=== PATIENT | male | born 1980 | race Caucasian/White ===

== ENCOUNTER 2021-04-20 10:12 | Inpatient (IN) ==
[2021-04-20] MEDS ORDERED: REMDESIVIR 200 MG in NS 250 ML IV 250 ML IV ONE (11:44)
[2021-04-20] MEDS ORDERED: NS 1000 ML 1,000 ML ONE (12:15)
[2021-04-20] MEDS: ZITHROMAX INJ 500 MG VIAL 500 MG in NS 250 ML IV 250 ML IV SCH (12:34)
[2021-04-20] MEDS: NS 1000 ML 1,000 ML IV SCH (12:35)
[2021-04-20] MEDS: ROBITUSSIN DM PO SCH ×3 (12:35→20:19)
[2021-04-20] MEDS: SOLU-Medrol 125 MG VIAL IVP SCH ×3 (12:35→21:09)
[2021-04-20 13:33] LABS: BASOPHILS % (AUTO) 0.2 % (0.2-1.0); HEMATOCRIT 45.7 % (42.0-54.0); HEMOGLOBIN 15.7 g/dL (13.5-18.0); LYMPHOCYTES # (AUTO) 0.7 X10^3/uL (1.3-2.9); LYMPHOCYTES % (AUTO) 9.3 % (21.0-51.0); MEAN CORPUSCULAR HEMOGLOBIN 30.4 pg (27.0-34.0); MEAN CORPUSCULAR HGB CONC 34.3 g/dL (33.0-35.0); MEAN CORPUSCULAR VOLUME 88.6 fL (80.0-100.0); MEAN PLATELET VOLUME 8.7 fL (7.4-11.0); MONOCYTES # (AUTO) 0.4 x10^3/uL (0.3-0.8); MONOCYTES % (AUTO) 5.2 % (0.0-13.0); NEUTROPHILS # (AUTO) 6.2 x10^3/uL (2.2-4.8); NEUTROPHILS % (AUTO) 85.3 % (42.0-75.0); PLATELET COUNT 151 X10^3/uL (150.0-450.0); RED BLOOD COUNT 5.15 X10^6/uL (4.7-6.0); RED CELL DISTRIBUTION WIDTH 13.6 % (11.6-16.5); WHITE BLOOD COUNT 7.2 X10^3/uL (3.6-10.0)
[2021-04-20] MEDS ORDERED: ANTIVERT TAB 25 MG ONE (13:43)
[2021-04-20] MEDS: ANTIVERT TAB 25 MG PO PRN ×3 (13:44→22:41)
[2021-04-20 13:48] LABS: ALANINE AMINOTRANSFERASE 108 Units/L (12-78); ALBUMIN 3.2 g/dL (3.4-5.0); ALKALINE PHOSPHATASE 97 Units/L (46-116); ASPARTATE AMINO TRANSFERASE 62 Units/L (15-37); BLOOD UREA NITROGEN 19 mg/dL (7-18); CALCIUM 7.8 mg/dL (8.5-10.1); CARBON DIOXIDE 27.9 mmol/L (21-32); CHLORIDE 102 mmol/L (98-107); COR CA(FOR HYPOALB) 8.4 mg/dL (8.5-10.1); COR NA(FOR HYPERGLY) 138 mmol/L (136-145); CREATININE 1.25 mg/dL (0.70-1.30); SODIUM 137 mmol/L (136-145); TOTAL PROTEIN 7.3 g/dL (6.4-8.2); eGFR NON BLACK RACES > 60 (>60)
[2021-04-20] MEDS: LOVENOX INJ 40 MG SYR SC SCH (15:26)
[2021-04-20] MEDS ORDERED: POTASSIUM CHL 60 MEQ/NS 0.45% 500 ML IV PRN (15:40)
[2021-04-20] MEDS ORDERED: MICRO K EXTEN CAP 10 MEQ PO PRN (15:40)
[2021-04-20] MEDS ORDERED: KLOR-CON PO PRN (15:40)
[2021-04-20] MEDS ORDERED: K-RIDER 10 MEQ/NS 100 ML 10 MEQ/100 ML BAG IV PRN (15:40)
[2021-04-20] MEDS ORDERED: K-DUR TAB 20 MEQ PO PRN (15:40)
[2021-04-20] MEDS ORDERED: POTASSIUM CHL 40 MEQ/NS 0.45% 500 ML IV PRN (15:40)
[2021-04-20] MEDS ORDERED: POTASSIUM CHLORIDE LIQ 20 MEQ UDC PO PRN (15:40)
[2021-04-20] MEDS: XOPENEX 1.25 MG/3 ML NEBULE NEB SCH ×3 (16:00→21:10)
[2021-04-20 16:02] LABS: ABG ALLEN TEST POS; ABG HCO3 27.1 mmol/L (22-26)
[2021-04-20 16:17] VITALS: BMI 33.9
[2021-04-20] MEDS ORDERED: DUONEB 0.5 MG/3 MG (3 mL) NEB SCH (17:00)
[2021-04-20] MEDS: PULMICORT NEB TX 0.5 MG NEB SCH ×2 (17:41→21:10)
--- NOTE | 2021-04-20 18:42 | DR.H&P ---
H&P - History & Physical for Day of: H&P Date: 04/20/21 - Chief Complaint Chief Complaint: SOB, DIZZINESS, FEVER, COVID + - History of Present Illness History of Present Illness: PT IS 40 WM DIRECT ADMIT FROM DR ZEPEDA OFFICE WITH COVID PNEUMONIA AND O2 IN 86% ON ROOM AIR IN OFFICE. PT WAS DX WITH COVID ONE WEEK AGO WITH ONSET OF SYMPTOMS ~10 DAYS AGO. PT HAS TAKEN AUGMENTIN, ZITHROMAX AND PREDNISONE. PT SPOUSE STATES HE PASSED OUT LAST NIGHT WHILE GOING TO RESTROOM. PT ADMITTED FOR TREATMENT OF ACUTE ILLNESS, HYPOXIA - Past Medical History Past Medical History: denies: Anxiety, CHF, Coronary Artery Disease, Diabetes, Hypertension - Past Surgical History Surgical History: Ortho Surgery, Other - Family History Family Medical History: Cancer, [place] - Social History Does patient currently use any type of tobacco product: No Have you used tobacco products in the last 12 months: No Type of Tobacco Use: None Does any household member use tobacco: No Alcohol Use: Occasionally Drug Use: None - Medications Home Medications: No Known Drug Allergies Allergy (Verified 10/22/19 12:48) CONTINUE taking the following medications amoxicillin 500 mg PO BID 04/20/21 [History] esomeprazole magnesium 20 mg PO DAILY 04/20/21 [History] esomeprazole magnesium 20 mg PO DAILY 04/20/21 [History] finasteride 1 mg PO DAILY 04/20/21 [History] ivermectin 15 mg PO DAILY 04/20/21 [History] prednisone 40 mg PO DAILY 04/20/21 [History] - Review of Systems Constitutional: Fever, Chills, Weakness, Malaise Eyes: No Symptoms Reported ENT: No Symptoms Reported Respiratory: Cough, Shortness of Breath, SOB with Excertion, Wheezing Cardiovascular: Light Headedness Gastrointestinal: Nausea Genitourinary: No Symptoms Reported Musculoskeletal: No Symptoms Reported Skin: No Symptoms Reported Neurological: Other (DIZZINESS, HEATH) - Physical Exam Vital Signs: Temperature 98.9 F Pulse Rate [Right Brachial] 86 Pulse Rate 87 Respiratory Rate 22 Blood Pressure [Left Arm] 126/68 Blood Pressure 139/82 O2 Sat by Pulse Oximetry 93 Oriented: Normal Eyes: Normal Ear: Normal Nose: Normal Throat: Normal Respiratory: RML Diminished, RLL Diminished, LML Diminished, LLL Diminished Cardiovascular: Tachycardia. negative: Edema : Normal Auscultation: Bowel Sounds: Normal Palpation: Normal Tenderness: Normal Skin: Normal Musculoskeletal: Normal Psychiatric: Anxiety Mood Description: Fearful, Anxious Affect: Anxious Speech Pattern: Clear, Appropriate - Assessment/Plan (1) Pneumonia due to COVID-19 virus Status: Acute Plan: ADMIT, ISOLATION COVID UNIT, RESP CONSULT. ABD ON ADMISSION, SUPPLEMENTAL O2. RESP THERAPY, IV HYDRATION, BP AND CARDIAC MONITORING. DVT PROPHYLAXIS, REMDESIVIR, ZITHROMAX, ZOSYN. AM LABS, CTA RO PE, CARDIAC ENZYMES AND EKG ON ADMISSION (2) Hypoxia Status: Acute - Allergies Allergies/Adverse Reactions: Allergies Allergy/AdvReac Type Severity Reaction Status Date / Time No Known Drug Allergies Allergy Verified 10/22/19 12:48
[2021-04-20 19:05] LABS: CKMB % 0.7 % (<4); CREATINE KINASE 148 Units/L (39-308); CREATINE KINASE MB < 1.0 ng/mL (0-4.0); TROPONIN I < 0.02 ng/mL (0-1.5)
--- NOTE | 2021-04-20 19:13 | CT ---
CTA CHESTCLINICAL INDICATION: COVID PNEUMONIAPROCEDURE: Non gated axial images of the chest were obtained with intravenous contrast according to pulmonary embolism protocol. MIPS were reconstructed Dose reduction techniques including Automated Exposure Control (AEC) and adjustment of mA and kV were utlized.COMPARISON:NoneFINDINGS:Poor contrast bolus timing results in poor opacification of the pulmonary arteries, particularly distally. No evidence of a pulmonary embolism to the level of the central lobar pulmonary arteries. More distal pulmonary emboli cannot be excluded.The heart is normal in size . No pericardial effusion . Patchy bilateral ground-glass opacities are present. Reactive mediastinal lymph nodes present.. No focal consolidations, pleural effusions or pneumothorax .Airways are patent . No suspicious pulmonary nodules or masses .Limited images of the upper abdomen are unremarkable.No aggressive osseous lesions.IMPRESSION:1. No evidence of pulmonary large embolism. Limitations as above.2. Patchy bilateral ground-glass opacities consistent with acute, atypical infection including viral etiologies.Electronically signed by: YUSUF MENDOZA (Apr 20, 2021 19:10:53)
[2021-04-20] MEDS ORDERED: NS 250 ML IV 250 ML IV ONE (19:42)
[2021-04-20] MEDS: PROTONIX INJ 40 MG VIAL IVP SCH (20:19)
[2021-04-20] MEDS: ZOSYN VIAL 3.375 GRAMS 3.375 G in NS 100 ML IV + SPIKE MINIBAG* 100 ML IV SCH (20:20)
[2021-04-20] MEDS ORDERED: PULMICORT NEB TX 0.5 MG NEB SCH (21:00)
[2021-04-20] MEDS: NS 250 ML IV 250 ML IV PRN (21:10)
[2021-04-20] MEDS: TUSSIONEX PENNKINETIC SUSP PO PRN (21:25)
[2021-04-20] MEDS ORDERED: TYLENOL 500 MG TAB EXTRA STRENGTH PO PRN (22:17)
[2021-04-20] MEDS ORDERED: TESSALON PERLES PO ONE (22:20)
[2021-04-20] MEDS: TESSALON PERLES PO PRN (22:41)
[2021-04-21] MEDS: TESSALON PERLES PO PRN ×2 (05:03→18:02)
[2021-04-21] MEDS: NS 1000 ML 1,000 ML IV SCH ×2 (05:03→20:46)
[2021-04-21] MEDS: SOLU-Medrol 125 MG VIAL IVP SCH ×3 (05:04→21:00)
[2021-04-21] MEDS: ZOSYN VIAL 3.375 GRAMS 3.375 G in NS 100 ML IV + SPIKE MINIBAG* 100 ML IV SCH ×3 (05:04→21:01)
[2021-04-21 05:42] LABS: ABG ALLEN TEST POS; ABG BASE EXCESS 2.8 mmol/L (-2.0-2.0); ABG HCO3 27.9 mmol/L (22-26)
[2021-04-21] MEDS: ROBITUSSIN DM PO SCH ×5 (06:04→20:20)
[2021-04-21] MEDS: ANTIVERT TAB 25 MG PO PRN ×2 (06:04→20:21)
[2021-04-21 06:16] LABS: BASOPHILS % (AUTO) 0.1 % (0.2-1.0); HEMATOCRIT 47.9 % (42.0-54.0); HEMOGLOBIN 16.2 g/dL (13.5-18.0); LYMPHOCYTES # (AUTO) 1.2 X10^3/uL (1.3-2.9); LYMPHOCYTES % (AUTO) 10.7 % (21.0-51.0); MEAN CORPUSCULAR HEMOGLOBIN 30.1 pg (27.0-34.0); MEAN CORPUSCULAR HGB CONC 33.7 g/dL (33.0-35.0); MEAN CORPUSCULAR VOLUME 89.1 fL (80.0-100.0); MEAN PLATELET VOLUME 8.5 fL (7.4-11.0); MONOCYTES # (AUTO) 0.6 x10^3/uL (0.3-0.8); NEUTROPHILS # (AUTO) 9.4 x10^3/uL (2.2-4.8); NEUTROPHILS % (AUTO) 84.2 % (42.0-75.0); PLATELET COUNT 203 X10^3/uL (150.0-450.0); RED BLOOD COUNT 5.38 X10^6/uL (4.7-6.0); RED CELL DISTRIBUTION WIDTH 13.8 % (11.6-16.5); WHITE BLOOD COUNT 11.1 X10^3/uL (3.6-10.0)
[2021-04-21 06:40] LABS: ALANINE AMINOTRANSFERASE 144 Units/L (12-78); ALBUMIN 3.2 g/dL (3.4-5.0); ALKALINE PHOSPHATASE 109 Units/L (46-116); ASPARTATE AMINO TRANSFERASE 69 Units/L (15-37); BLOOD UREA NITROGEN 18 mg/dL (7-18); CALCIUM 8.6 mg/dL (8.5-10.1); CARBON DIOXIDE 23.1 mmol/L (21-32); CHLORIDE 106 mmol/L (98-107); COR CA(FOR HYPOALB) 9.2 mg/dL (8.5-10.1); COR NA(FOR HYPERGLY) 142 mmol/L (136-145); CREATININE 1.19 mg/dL (0.70-1.30); SODIUM 141 mmol/L (136-145); TOTAL PROTEIN 7.8 g/dL (6.4-8.2); eGFR NON BLACK RACES > 60 (>60)
[2021-04-21] MEDS: PULMICORT NEB TX 0.5 MG NEB SCH ×2 (09:32→20:40)
[2021-04-21] MEDS: XOPENEX 1.25 MG/3 ML NEBULE NEB SCH ×4 (09:32→20:40)
[2021-04-21] MEDS: LOVENOX INJ 40 MG SYR SC SCH (09:35)
[2021-04-21] MEDS: PROTONIX INJ 40 MG VIAL IVP SCH (09:35)
[2021-04-21] MEDS: ZITHROMAX INJ 500 MG VIAL 500 MG in NS 250 ML IV 250 ML IV SCH (09:36)
[2021-04-21] MEDS: REMDESIVIR 100 MG in NS 250 ML IV 250 ML IV SCH (10:00)
[2021-04-21] MEDS: TUSSIONEX PENNKINETIC SUSP PO PRN (13:00)
[2021-04-22] MEDS: TESSALON PERLES PO PRN ×2 (02:00→20:13)
[2021-04-22] MEDS: TUSSIONEX PENNKINETIC SUSP PO PRN ×2 (05:02→12:41)
[2021-04-22] MEDS: NS 1000 ML 1,000 ML IV SCH ×2 (05:02→20:12)
[2021-04-22] MEDS: ZOSYN VIAL 3.375 GRAMS 3.375 G in NS 100 ML IV + SPIKE MINIBAG* 100 ML IV SCH ×3 (05:03→22:57)
[2021-04-22] MEDS: SOLU-Medrol 125 MG VIAL IVP SCH (05:03)
[2021-04-22 06:12] LABS: BASOPHILS % (AUTO) 0.1 % (0.2-1.0); HEMATOCRIT 44.3 % (42.0-54.0); HEMOGLOBIN 15.2 g/dL (13.5-18.0); LYMPHOCYTES # (AUTO) 0.6 X10^3/uL (1.3-2.9); LYMPHOCYTES % (AUTO) 5.6 % (21.0-51.0); MEAN CORPUSCULAR HEMOGLOBIN 30.6 pg (27.0-34.0); MEAN CORPUSCULAR HGB CONC 34.3 g/dL (33.0-35.0); MEAN CORPUSCULAR VOLUME 89.2 fL (80.0-100.0); MEAN PLATELET VOLUME 8.6 fL (7.4-11.0); MONOCYTES # (AUTO) 0.5 x10^3/uL (0.3-0.8); MONOCYTES % (AUTO) 5.1 % (0.0-13.0); NEUTROPHILS # (AUTO) 9.2 x10^3/uL (2.2-4.8); NEUTROPHILS % (AUTO) 89.2 % (42.0-75.0); PLATELET COUNT 217 X10^3/uL (150.0-450.0); RED BLOOD COUNT 4.97 X10^6/uL (4.7-6.0); WHITE BLOOD COUNT 10.3 X10^3/uL (3.6-10.0)
[2021-04-22 06:33] LABS: ALANINE AMINOTRANSFERASE 105 Units/L (12-78); ALBUMIN 2.8 g/dL (3.4-5.0); ALKALINE PHOSPHATASE 90 Units/L (46-116); ASPARTATE AMINO TRANSFERASE 43 Units/L (15-37); BLOOD UREA NITROGEN 18 mg/dL (7-18); CALCIUM 8.3 mg/dL (8.5-10.1); CARBON DIOXIDE 26.7 mmol/L (21-32); CHLORIDE 105 mmol/L (98-107); COR CA(FOR HYPOALB) 9.3 mg/dL (8.5-10.1); COR NA(FOR HYPERGLY) 141 mmol/L (136-145); CREATININE 0.99 mg/dL (0.70-1.30); SODIUM 140 mmol/L (136-145); TOTAL PROTEIN 7.1 g/dL (6.4-8.2); eGFR NON BLACK RACES > 60 (>60)
[2021-04-22] MEDS: ROBITUSSIN DM PO SCH ×4 (08:00→20:12)
--- NOTE | 2021-04-22 08:27 | RAD ---
HISTORYCOVID PNEUMONIASTUDYCHEST, 1 [id number]/22/2021FINDINGSPatchy areas of opacity are present or more prominent. This may represent a progression of bronchopneumonia.No pleural effusion or pneumothorax.The heart size is magnified.Bones are unremarkable.EKG leads are noted.IMPRESSION1. Progressed bronchopneumoniaElectronically signed by: Rufino Carvajal (Apr 22, 2021 08:25:19)
[2021-04-22] MEDS: PROTONIX INJ 40 MG VIAL IVP SCH (09:47)
[2021-04-22] MEDS: LOVENOX INJ 40 MG SYR SC SCH (09:50)
[2021-04-22] MEDS: REMDESIVIR 100 MG in NS 250 ML IV 250 ML IV SCH (09:51)
[2021-04-22] MEDS: ZITHROMAX INJ 500 MG VIAL 500 MG in NS 250 ML IV 250 ML IV SCH (09:52)
[2021-04-22] MEDS: XOPENEX 1.25 MG/3 ML NEBULE NEB SCH ×4 (10:08→21:00)
[2021-04-22] MEDS: PULMICORT NEB TX 0.5 MG NEB SCH ×2 (10:08→21:00)
[2021-04-22 10:14] LABS: ABG BASE EXCESS 3.2 mmol/L (-2.0-2.0); ABG HCO3 27.9 mmol/L (22-26)
[2021-04-22] MEDS: TORADOL 15 MG VIAL IVP SCH ×2 (11:57→17:10)
[2021-04-22] MEDS: SOLU-Medrol 40 MG VIAL IVP SCH ×3 (11:57→22:57)
[2021-04-22] MEDS: MUCOMYST (RESPIRATORY USE ONLY) NEB SCH ×2 (13:44→21:00)
[2021-04-22] MEDS: ANTIVERT TAB 25 MG PO PRN (20:13)
[2021-04-23 04:59] LABS: BASOPHILS % (AUTO) 0.1 % (0.2-1.0); HEMATOCRIT 40.2 % (42.0-54.0); HEMOGLOBIN 13.7 g/dL (13.5-18.0); LYMPHOCYTES # (AUTO) 0.5 X10^3/uL (1.3-2.9); MEAN CORPUSCULAR HGB CONC 34.2 g/dL (33.0-35.0); MEAN CORPUSCULAR VOLUME 87.9 fL (80.0-100.0); MEAN PLATELET VOLUME 8.2 fL (7.4-11.0); MONOCYTES # (AUTO) 0.5 x10^3/uL (0.3-0.8); MONOCYTES % (AUTO) 4.9 % (0.0-13.0); NEUTROPHILS # (AUTO) 8.5 x10^3/uL (2.2-4.8); PLATELET COUNT 240 X10^3/uL (150.0-450.0); RED BLOOD COUNT 4.57 X10^6/uL (4.7-6.0); RED CELL DISTRIBUTION WIDTH 14.2 % (11.6-16.5); WHITE BLOOD COUNT 9.5 X10^3/uL (3.6-10.0)
[2021-04-23] MEDS: SOLU-Medrol 40 MG VIAL IVP SCH ×4 (05:05→22:39)
[2021-04-23] MEDS: ZOSYN VIAL 3.375 GRAMS 3.375 G in NS 100 ML IV + SPIKE MINIBAG* 100 ML IV SCH ×3 (05:05→21:52)
[2021-04-23 05:16] LABS: ALANINE AMINOTRANSFERASE 106 Units/L (12-78); ALBUMIN 2.4 g/dL (3.4-5.0); ALKALINE PHOSPHATASE 79 Units/L (46-116); ASPARTATE AMINO TRANSFERASE 48 Units/L (15-37); BLOOD UREA NITROGEN 22 mg/dL (7-18); CARBON DIOXIDE 28.8 mmol/L (21-32); CHLORIDE 107 mmol/L (98-107); COR CA(FOR HYPOALB) 9.3 mg/dL (8.5-10.1); COR NA(FOR HYPERGLY) 141 mmol/L (136-145); CREATININE 0.88 mg/dL (0.70-1.30); SODIUM 140 mmol/L (136-145); TOTAL PROTEIN 6.1 g/dL (6.4-8.2); eGFR NON BLACK RACES > 60 (>60)
[2021-04-23 06:17] LABS: ABG BASE EXCESS 3.7 mmol/L (-2.0-2.0); ABG HCO3 25.7 mmol/L (22-26)
[2021-04-23 06:18] LABS: ABG ALLEN TEST POS
--- NOTE | 2021-04-23 08:05 | RAD ---
HISTORYCOVID PNEUMONIASTUDYCHEST, 1 [id number]/24/2021FINDINGSPatchy areas of opacity bilateral compatible with bronchopneumonia. No change from yesterday.No pleural effusion or pneumothorax.Heart size is normal.Bones are unremarkable.EKG leads are noted.IMPRESSION1. Unchanged bronchopneumoniaElectronically signed by: Rufino Carvajal (Apr 23, 2021 08:03:30)
[2021-04-23] MEDS: LOVENOX INJ 40 MG SYR SC SCH (08:46)
[2021-04-23] MEDS: REMDESIVIR 100 MG in NS 250 ML IV 250 ML IV SCH (08:47)
[2021-04-23] MEDS: PROTONIX TAB 40 MG PO SCH (08:47)
[2021-04-23] MEDS: ZITHROMAX INJ 500 MG VIAL 500 MG in NS 250 ML IV 250 ML IV SCH (08:49)
[2021-04-23] MEDS: ROBITUSSIN DM PO SCH ×4 (08:49→20:55)
[2021-04-23] MEDS: XOPENEX 1.25 MG/3 ML NEBULE NEB SCH ×4 (09:57→21:36)
[2021-04-23] MEDS: MUCOMYST (RESPIRATORY USE ONLY) NEB SCH ×3 (09:57→21:36)
[2021-04-23] MEDS: PULMICORT NEB TX 0.5 MG NEB SCH ×2 (09:57→21:36)
[2021-04-23] MEDS: LEXAPRO PO SCH (10:35)
[2021-04-23] MEDS ORDERED: LEXAPRO ONE (10:36)
[2021-04-23] MEDS ORDERED: LASIX IVP ONE ×2 (10:40→10:41)
[2021-04-23 10:51] LABS: ABG BASE EXCESS 2.9 mmol/L (-2.0-2.0); ABG HCO3 25.3 mmol/L (22-26)
[2021-04-23] MEDS: NS 1000 ML 1,000 ML IV SCH (14:52)
[2021-04-23] MEDS: VISTARIL PO SCH ×2 (15:59→21:52)
[2021-04-23] MEDS ORDERED: VOLTAREN 1 % GEL MULTI DOSE TUBE TOP PRN (16:20)
[2021-04-23] MEDS ORDERED: TORADOL 30 MG VIAL IVP ONE (16:20)
[2021-04-23 18:00] LABS: ABG BASE EXCESS 7.5 mmol/L (-2.0-2.0); ABG HCO3 31.1 mmol/L (22-26)
[2021-04-23 18:01] LABS: ABG ALLEN TEST POS
[2021-04-23] MEDS: TUSSIONEX PENNKINETIC SUSP PO PRN (21:53)
[2021-04-24] MEDS: NS 1000 ML 1,000 ML IV SCH ×3 (00:25→20:50)
[2021-04-24 05:09] LABS: BASOPHILS % (AUTO) 0.1 % (0.2-1.0); HEMATOCRIT 40.3 % (42.0-54.0); HEMOGLOBIN 13.7 g/dL (13.5-18.0); LYMPHOCYTES # (AUTO) 0.5 X10^3/uL (1.3-2.9); LYMPHOCYTES % (AUTO) 5.3 % (21.0-51.0); MEAN CORPUSCULAR HGB CONC 34.1 g/dL (33.0-35.0); MEAN CORPUSCULAR VOLUME 87.8 fL (80.0-100.0); MEAN PLATELET VOLUME 8.1 fL (7.4-11.0); MONOCYTES # (AUTO) 0.5 x10^3/uL (0.3-0.8); MONOCYTES % (AUTO) 5.2 % (0.0-13.0); NEUTROPHILS # (AUTO) 8.2 x10^3/uL (2.2-4.8); NEUTROPHILS % (AUTO) 89.4 % (42.0-75.0); PLATELET COUNT 271 X10^3/uL (150.0-450.0); RED BLOOD COUNT 4.59 X10^6/uL (4.7-6.0); RED CELL DISTRIBUTION WIDTH 14.1 % (11.6-16.5); WHITE BLOOD COUNT 9.2 X10^3/uL (3.6-10.0)
[2021-04-24] MEDS: ZOSYN VIAL 3.375 GRAMS 3.375 G in NS 100 ML IV + SPIKE MINIBAG* 100 ML IV SCH ×3 (05:17→20:50)
[2021-04-24] MEDS: SOLU-Medrol 40 MG VIAL IVP SCH ×4 (05:17→22:39)
[2021-04-24 05:18] LABS: ALANINE AMINOTRANSFERASE 98 Units/L (12-78); ALBUMIN 2.5 g/dL (3.4-5.0); ALKALINE PHOSPHATASE 77 Units/L (46-116); ASPARTATE AMINO TRANSFERASE 38 Units/L (15-37); BLOOD UREA NITROGEN 27 mg/dL (7-18); CALCIUM 8.2 mg/dL (8.5-10.1); CARBON DIOXIDE 30.8 mmol/L (21-32); CHLORIDE 106 mmol/L (98-107); COR CA(FOR HYPOALB) 9.4 mg/dL (8.5-10.1); COR NA(FOR HYPERGLY) 143 mmol/L (136-145); CREATININE 0.92 mg/dL (0.70-1.30); SODIUM 142 mmol/L (136-145); TOTAL PROTEIN 6.3 g/dL (6.4-8.2); eGFR NON BLACK RACES > 60 (>60)
[2021-04-24 06:17] LABS: ABG BASE EXCESS 8.5 mmol/L (-2.0-2.0)
[2021-04-24 06:18] LABS: ABG ALLEN TEST POS; ABG HCO3 32.8 mmol/L (22-26)
[2021-04-24] MEDS: VISTARIL PO SCH ×3 (06:40→20:50)
[2021-04-24] MEDS: MUCOMYST (RESPIRATORY USE ONLY) NEB SCH ×3 (07:16→20:41)
[2021-04-24] MEDS ORDERED: LEVSIN/MAALOX/LIDOC VISC PO PRN (08:44)
[2021-04-24] MEDS ORDERED: PEPCID 20 MG IV PREMIX* 20 MG/50 ML BAG IV ONE (08:44)
[2021-04-24] MEDS ORDERED: LEXAPRO ONE (09:17)
[2021-04-24] MEDS: PULMICORT NEB TX 0.5 MG NEB SCH ×2 (09:28→20:41)
[2021-04-24] MEDS: XOPENEX 1.25 MG/3 ML NEBULE NEB SCH ×4 (09:28→20:41)
[2021-04-24] MEDS: REMDESIVIR 100 MG in NS 250 ML IV 250 ML IV SCH (09:41)
[2021-04-24] MEDS: ZITHROMAX INJ 500 MG VIAL 500 MG in NS 250 ML IV 250 ML IV SCH (09:42)
[2021-04-24] MEDS: LOVENOX INJ 40 MG SYR SC SCH (09:43)
[2021-04-24] MEDS: PROTONIX TAB 40 MG PO SCH (09:44)
[2021-04-24] MEDS: ROBITUSSIN DM PO SCH ×4 (09:44→20:50)
[2021-04-24] MEDS: LEXAPRO PO SCH (09:45)
[2021-04-24] MEDS: LASIX IVP SCH ×2 (09:45→16:59)
--- NOTE | 2021-04-24 09:53 | VAS ---
HISTORYCOVID, ELEVATED D-DIMERSTUDYLOWER EXT VENOUS, BILATERALCOMPARISONNoneTECHNIQUEMultiple [place] scale and color flow Doppler images of the deep venous system were obtained of the right and left lower extremity.FINDINGSThe deep venous system of the right and left lower extremities were evaluated from the level of the common femoral vein through the popliteal vein. Normal color flow and augmentation can be observed. In addition, normal compression is seen throughout the deep venous system.IMPRESSIONNegative for DVT.Electronically signed by: EUGENIA MCFADDEN (Apr 24, 2021 09:51:24)
--- NOTE | 2021-04-24 09:53 | RAD ---
HISTORYpneumoniaSTUDYCHEST, 1 [id number]/25/2021.TECHNIQUEAP view of the chestFINDINGSCardiac and mediastinal contours are within normal limits. Similar appearance of multifocal bilateral airspace opacities. No definite pleural effusion or pneumothorax. Soft tissue attenuation limits evaluation.IMPRESSIONNo significant change in bilateral multifocal pneumonia. Recommend follow-up to document resolution.Electronically signed by: Ivan Garcia (Apr 24, 2021 09:50:56)
[2021-04-24] MEDS: ZyrTEC TAB 10 MG PO SCH (20:50)
[2021-04-24] MEDS: FLONASE NASAL SPRAY ENOSTRIL SCH (20:50)
[2021-04-25] MEDS: NS 1000 ML 1,000 ML IV SCH ×3 (04:27→20:55)
[2021-04-25] MEDS: SOLU-Medrol 40 MG VIAL IVP SCH ×4 (05:10→22:00)
[2021-04-25] MEDS: VISTARIL PO SCH ×3 (05:10→21:31)
[2021-04-25] MEDS: ZOSYN VIAL 3.375 GRAMS 3.375 G in NS 100 ML IV + SPIKE MINIBAG* 100 ML IV SCH ×3 (05:10→21:36)
[2021-04-25 08:37] LABS: BASOPHILS % (AUTO) 0.1 % (0.2-1.0); HEMATOCRIT 41.6 % (42.0-54.0); HEMOGLOBIN 14.1 g/dL (13.5-18.0); LYMPHOCYTES # (AUTO) 0.5 X10^3/uL (1.3-2.9); LYMPHOCYTES % (AUTO) 5.5 % (21.0-51.0); MEAN CORPUSCULAR HGB CONC 33.9 g/dL (33.0-35.0); MEAN CORPUSCULAR VOLUME 88.5 fL (80.0-100.0); MONOCYTES # (AUTO) 0.6 x10^3/uL (0.3-0.8); MONOCYTES % (AUTO) 6.1 % (0.0-13.0); NEUTROPHILS % (AUTO) 88.3 % (42.0-75.0); PLATELET COUNT 296 X10^3/uL (150.0-450.0); WHITE BLOOD COUNT 9.1 X10^3/uL (3.6-10.0)
[2021-04-25] MEDS ORDERED: LEXAPRO ONE (08:45)
[2021-04-25 08:59] LABS: ALANINE AMINOTRANSFERASE 91 Units/L (12-78); ALBUMIN 2.6 g/dL (3.4-5.0); ALKALINE PHOSPHATASE 74 Units/L (46-116); ASPARTATE AMINO TRANSFERASE 26 Units/L (15-37); BLOOD UREA NITROGEN 30 mg/dL (7-18); CALCIUM 8.1 mg/dL (8.5-10.1); CARBON DIOXIDE 29.5 mmol/L (21-32); CHLORIDE 106 mmol/L (98-107); COR CA(FOR HYPOALB) 9.2 mg/dL (8.5-10.1); COR NA(FOR HYPERGLY) 141 mmol/L (136-145); SODIUM 140 mmol/L (136-145); TOTAL PROTEIN 6.3 g/dL (6.4-8.2); eGFR NON BLACK RACES > 60 (>60)
[2021-04-25] MEDS: PULMICORT NEB TX 0.5 MG NEB SCH ×2 (09:00→20:10)
[2021-04-25] MEDS: MUCOMYST (RESPIRATORY USE ONLY) NEB SCH ×2 (09:00→20:10)
[2021-04-25] MEDS: XOPENEX 1.25 MG/3 ML NEBULE NEB SCH ×4 (09:00→20:10)
[2021-04-25 09:06] LABS: ABG ALLEN TEST POS; ABG BASE EXCESS 6.1 mmol/L (-2.0-2.0); ABG HCO3 29.6 mmol/L (22-26)
[2021-04-25] MEDS: FLONASE NASAL SPRAY ENOSTRIL SCH ×2 (09:19→21:33)
[2021-04-25] MEDS: LEXAPRO PO SCH (09:19)
[2021-04-25] MEDS: PROTONIX TAB 40 MG PO SCH (09:20)
[2021-04-25] MEDS: ROBITUSSIN DM PO SCH ×4 (09:20→21:32)
[2021-04-25] MEDS: LOVENOX INJ 40 MG SYR SC SCH (09:20)
[2021-04-25] MEDS: ZITHROMAX INJ 500 MG VIAL 500 MG in NS 250 ML IV 250 ML IV SCH (09:21)
[2021-04-25] MEDS: ZyrTEC TAB 10 MG PO SCH (09:21)
[2021-04-25] MEDS: LASIX IVP SCH ×2 (09:31→17:26)
[2021-04-25] MEDS: TESSALON PERLES PO PRN (21:31)
[2021-04-25] MEDS: NS 250 ML IV 250 ML IV PRN (21:36)
[2021-04-26] MEDS: ZOSYN VIAL 3.375 GRAMS 3.375 G in NS 100 ML IV + SPIKE MINIBAG* 100 ML IV SCH ×3 (05:00→21:36)
[2021-04-26] MEDS: VISTARIL PO SCH ×3 (05:00→21:35)
[2021-04-26] MEDS: SOLU-Medrol 40 MG VIAL IVP SCH ×3 (05:00→16:27)
--- NOTE | 2021-04-26 07:12 | RAD ---
HISTORYCOVID+STUDYCHEST, 1 [id number]/26/2021TECHNIQUEAP view of the chestFINDINGSCardiac and mediastinal contours are within normal limits. Scattered bilateral airspace opacities appear similar to prior. No definite pleural effusion or pneumothorax.IMPRESSIONNo significant change. Bilateral multifocal pneumonia.Electronically signed by: Ivan Garcia (Apr 26, 2021 07:10:20)
[2021-04-26 07:24] LABS: ABG BASE EXCESS 5.5 mmol/L (-2.0-2.0); ABG HCO3 29.9 mmol/L (22-26)
[2021-04-26 07:25] LABS: ABG ALLEN TEST POS
[2021-04-26 07:55] LABS: BASOPHILS % (AUTO) 0.4 % (0.2-1.0); HEMOGLOBIN 14.9 g/dL (13.5-18.0); LYMPHOCYTES # (AUTO) 0.5 X10^3/uL (1.3-2.9); LYMPHOCYTES % (AUTO) 5.2 % (21.0-51.0); MEAN CORPUSCULAR HEMOGLOBIN 30.2 pg (27.0-34.0); MEAN CORPUSCULAR HGB CONC 34.5 g/dL (33.0-35.0); MEAN CORPUSCULAR VOLUME 87.6 fL (80.0-100.0); MEAN PLATELET VOLUME 7.8 fL (7.4-11.0); MONOCYTES # (AUTO) 0.4 x10^3/uL (0.3-0.8); MONOCYTES % (AUTO) 4.5 % (0.0-13.0); NEUTROPHILS # (AUTO) 8.1 x10^3/uL (2.2-4.8); NEUTROPHILS % (AUTO) 89.9 % (42.0-75.0); PLATELET COUNT 355 X10^3/uL (150.0-450.0); RED BLOOD COUNT 4.91 X10^6/uL (4.7-6.0); RED CELL DISTRIBUTION WIDTH 13.7 % (11.6-16.5)
[2021-04-26] MEDS ORDERED: LEXAPRO ONE (08:16)
[2021-04-26] MEDS: FLONASE NASAL SPRAY ENOSTRIL SCH ×2 (08:28→21:34)
[2021-04-26] MEDS: LEXAPRO PO SCH (08:29)
[2021-04-26] MEDS: LASIX IVP SCH ×2 (08:29→16:27)
[2021-04-26] MEDS: LOVENOX INJ 40 MG SYR SC SCH (08:29)
[2021-04-26] MEDS: PROTONIX TAB 40 MG PO SCH (08:31)
[2021-04-26] MEDS: ROBITUSSIN DM PO SCH ×4 (08:31→21:34)
[2021-04-26] MEDS: ZyrTEC TAB 10 MG PO SCH (08:31)
[2021-04-26] MEDS: ZITHROMAX INJ 500 MG VIAL 500 MG in NS 250 ML IV 250 ML IV SCH (08:31)
[2021-04-26] MEDS: MUCOMYST (RESPIRATORY USE ONLY) NEB SCH ×2 (08:55→21:30)
[2021-04-26] MEDS: XOPENEX 1.25 MG/3 ML NEBULE NEB SCH ×4 (08:55→21:30)
[2021-04-26] MEDS: PULMICORT NEB TX 0.5 MG NEB SCH ×2 (08:55→21:30)
[2021-04-26 09:04] LABS: ALANINE AMINOTRANSFERASE 89 Units/L (12-78); ALBUMIN 2.7 g/dL (3.4-5.0); ALKALINE PHOSPHATASE 77 Units/L (46-116); ASPARTATE AMINO TRANSFERASE 23 Units/L (15-37); BLOOD UREA NITROGEN 31 mg/dL (7-18); CALCIUM 8.1 mg/dL (8.5-10.1); CARBON DIOXIDE 29.8 mmol/L (21-32); CHLORIDE 106 mmol/L (98-107); COR CA(FOR HYPOALB) 9.1 mg/dL (8.5-10.1); COR NA(FOR HYPERGLY) 140 mmol/L (136-145); CREATININE 1.01 mg/dL (0.70-1.30); SODIUM 139 mmol/L (136-145); TOTAL PROTEIN 6.5 g/dL (6.4-8.2); eGFR NON BLACK RACES > 60 (>60)
[2021-04-26] MEDS: NS 1000 ML 1,000 ML IV SCH (15:33)
[2021-04-27 04:59] LABS: BASOPHILS % (AUTO) 0.3 % (0.2-1.0); HEMATOCRIT 41.7 % (42.0-54.0); HEMOGLOBIN 14.2 g/dL (13.5-18.0); LYMPHOCYTES # (AUTO) 0.5 X10^3/uL (1.3-2.9); MEAN CORPUSCULAR HEMOGLOBIN 30.1 pg (27.0-34.0); MEAN CORPUSCULAR VOLUME 88.4 fL (80.0-100.0); MEAN PLATELET VOLUME 7.8 fL (7.4-11.0); MONOCYTES # (AUTO) 0.2 x10^3/uL (0.3-0.8); MONOCYTES % (AUTO) 2.5 % (0.0-13.0); NEUTROPHILS # (AUTO) 8.8 x10^3/uL (2.2-4.8); NEUTROPHILS % (AUTO) 92.2 % (42.0-75.0); PLATELET COUNT 343 X10^3/uL (150.0-450.0); RED BLOOD COUNT 4.72 X10^6/uL (4.7-6.0); RED CELL DISTRIBUTION WIDTH 13.9 % (11.6-16.5); WHITE BLOOD COUNT 9.5 X10^3/uL (3.6-10.0)
[2021-04-27 05:04] LABS: BLOOD UREA NITROGEN 26 mg/dL (7-18); CALCIUM 7.9 mg/dL (8.5-10.1); CARBON DIOXIDE 24.6 mmol/L (21-32); CHLORIDE 105 mmol/L (98-107); COR NA(FOR HYPERGLY) 140 mmol/L (136-145); CREATININE 0.84 mg/dL (0.70-1.30); SODIUM 139 mmol/L (136-145); eGFR NON BLACK RACES > 60 (>60)
[2021-04-27 05:04] LABS: ABG ALLEN TEST POS; ABG BASE EXCESS 2.6 mmol/L (-2.0-2.0); ABG HCO3 27.2 mmol/L (22-26)
[2021-04-27] MEDS: SOLU-Medrol 40 MG VIAL IVP SCH ×3 (05:35→10:45)
[2021-04-27] MEDS: VISTARIL PO SCH (05:38)
[2021-04-27 05:40] LABS: PLATELET MORPHOLOGY COMMENT NORMAL (NORMAL)
[2021-04-27] MEDS: ZOSYN VIAL 3.375 GRAMS 3.375 G in NS 100 ML IV + SPIKE MINIBAG* 100 ML IV SCH (06:07)
--- NOTE | 2021-04-27 06:25 | RAD ---
HISTORYFollow-up pneumoniaSTUDYChest AP [id number]/28/2021FINDINGSHeart size is accentuated by mild hypo inflation. It is likely up per limits normal in size. Scattered patchy areas of alveolar infiltrate are again identified bilater ally unchanged in degree or distribution from the prior examination. No pneumothorax or pleural effus ion is identified. Bony thorax is unremarkable.IMPRESSIONMild hypo inflationNo change bilateral patch y alveolar infiltrates when compared to the prior examinationElectronically signed by: SUSANA MAGANA (Apr 27, 2021 06:23:18)
[2021-04-27] MEDS: ZITHROMAX INJ 500 MG VIAL 500 MG in NS 250 ML IV 250 ML IV SCH (09:00)
[2021-04-27] MEDS: FLONASE NASAL SPRAY ENOSTRIL SCH (09:00)
[2021-04-27] MEDS: LASIX IVP SCH (09:00)
[2021-04-27] MEDS: LEXAPRO PO SCH (09:00)
[2021-04-27] MEDS: ROBITUSSIN DM PO SCH ×2 (09:00→13:03)
[2021-04-27] MEDS: ZyrTEC TAB 10 MG PO SCH (09:00)
[2021-04-27] MEDS: PROTONIX TAB 40 MG PO SCH (09:00)
[2021-04-27] MEDS ORDERED: LEXAPRO ONE (09:06)
[2021-04-27] MEDS: PULMICORT NEB TX 0.5 MG NEB SCH (09:32)
[2021-04-27] MEDS: MUCOMYST (RESPIRATORY USE ONLY) NEB SCH (09:32)
[2021-04-27] MEDS: XOPENEX 1.25 MG/3 ML NEBULE NEB SCH (09:32)
[2021-04-27 11:28] LABS: ALANINE AMINOTRANSFERASE 83 Units/L (12-78); ALBUMIN 2.5 g/dL (3.4-5.0); ALKALINE PHOSPHATASE 71 Units/L (46-116); ASPARTATE AMINO TRANSFERASE 30 Units/L (15-37); COR CA(FOR HYPOALB) 9.1 mg/dL (8.5-10.1); TOTAL PROTEIN 5.9 g/dL (6.4-8.2)
[2021-04-27 12:03] VITALS: BP 106/60
[2021-04-27] MEDS: LOVENOX INJ 40 MG SYR SC SCH (13:00)
== END 2021-04-27 13:40 | disposition home or self-care (01) | DRG 177 ==
LOC: ICU 10:14
PROVIDERS: ADMIT Internal Medicine; ATTEND Internal Medicine
DX: J12.82 Pneumonia due to coronavirus disease 2019; U07.1 COVID-19; R79.82 Elevated C-reactive protein (CRP)